=== PATIENT | female | born 1960 | race Caucasian/White ===

== ENCOUNTER → 2016-10-16 | Outpatient (CLI) | payer OTHER ==
[~2016-10-16] MED LIST: ACIDOPHILUS100 MG PO; ALBUTEROL2.5 MG/0.5 INH; AUGMENTIN 875875 MG PO; FLEXERIL PO; GLUCOPHAGE500 MG PO; HYDROCODONE-AP1 EAC6 PO; LEVOTHYROXIN0.075 MG PO; NICOTINE GUM2 MG MUCOUS MEM; OXYBUTYNIN 5 MG5 M2 PO; PERCOCET 7.5-31 EACH PO; PIROXICAM 10 MG PO; ROBAXIN 750 MG750 M1 PO; SYNTHROID25 MCG PO; TYLENOL325 MG PO; VITAMIN D3400 UNIT/5 PO; ZOLOFT50 MG PO
== END ==
LOC: RAD 11:35
DX: J44.9 Chronic obstructive pulmonary disease, unspecified (principal)

== ENCOUNTER → 2017-10-20 | Outpatient (CLI) | payer OTHER | LOC: RAD 11:53 | DX: J98.4 Other disorders of lung (principal); J42 Unspecified chronic bronchitis ==